=== PATIENT | female | born 1985 | race Caucasian/White ===

== ENCOUNTER → 2024-11-21 | Outpatient (CLI) | payer BC, OTHER ==
--- NOTE | 2024-11-30 08:58 | MM ---
Reason for Exam: Screening (asymptomatic). Last mammogram was performed 1 year(s) and 1 month(s) ago. Patient History: Menarche at age 7. First Full-Term at age 34. Late child-bearing (after 28). Patient has history of breast feeding. Last menstrual period: 11/16/2024 Risk Values: Whitley 5 year model risk: 0.9%. NCI Lifetime model risk: 14.7%. Prior Study Comparison: 10/07/2023 Bilateral Screening Mammogram, [facility]. Tissue Density: There are scattered areas of fibroglandular density. Findings: Analyzed By CAD. There is no suspicious group of microcalcifications or new suspicious mass in either breast. Overall Assessment: Negative, BI-RAD 1 Management: Screening Mammogram of both breasts in 1 year. . Patient should continue monthly self-breast exams. A clinical breast exam by your physician is recommended on an annual basis. This exam should not preclude additional follow-up of suspicious palpable abnormalities. Note on Whitley scores and lifetime risk: 1. A Whitley score greater than 3% is considered moderate risk. If this is the case, consider specialist referral to assess eligibility for a risk reducing agent. 2. If overall lifetime risk for the development of breast cancer is 20% or higher, the patient may qualify for future screening with alternating mammogram and breast MRI. [facility], , 11/30/2024 8:55 AM. Electronically signed and approved by: Kody Reynolds M.D. [facility]
== END | disposition home or self-care (01) ==
LOC: RADMAMWWP 09:50
PROVIDERS: ATTEND Internal Medicine Geriatric Medicine
DX: Z12.31 Encounter for screening mammogram for malignant neoplasm of breast (principal); R92.323 Mammographic fibroglandular density, bilateral breasts
CPT/HCPCS: 77063; 77067

== ENCOUNTER 2024-11-23 08:36 | Day surgery (SDC) | payer BC, OTHER ==
[2024-11-23] MEDS: IV FLUID CONTINUATION 1,000 ML IV ONE (09:05)
[2024-11-23] MEDS: LIDOCAINE 1% (10MG/ML) FOR IV START INTRADERMA STA (09:05)
[2024-11-23] MEDS: LACTATED RINGERS 1,000 ML IV SCH (09:05)
[2024-11-23 09:11] VITALS: TEMP 97.6
[2024-11-23] MEDS ORDERED: PROPOFOL 10 MG/ML 20 ML VIAL IV ONE (09:11)
[2024-11-23] MEDS ORDERED: LIDOCAINE 1% INJ 10MG/ML (20 ML MDV) ONE (09:11)
[2024-11-23 09:46] VITALS: BP 115/77; PULSE 60; RESP 17
--- NOTE | 2024-11-23 09:53 | P.PCN ---
Date of Procedure: 11/23/24 Procedure(s) Performed: BRIEF HISTORY: Patient is a 39-year-old pleasant white female scheduled for an elective colonoscopy as a part of screening for colon cancer and family history of colon cancer. Her grandpa was diagnosed with colon cancer at age 50. PROCEDURE PERFORMED: Colonoscopy. PREOPERATIVE DIAGNOSIS: Screening for colon cancer and family history of colon cancer. IV sedation per Anesthesia. PROCEDURE: After informed consent was obtained, the patient, was brought into the endoscopy unit. IV sedation was administered by Anesthesia under continuous monitoring. Digital rectal examination was normal. Initially the Olympus CF-160 flexible video colonoscope was then inserted in the rectum, gradually advanced into the cecum without any difficulty. Careful examination was performed as the scope was gradually being withdrawn. Ileocecal valve and the appendiceal orifice were visualized and appeared normal. Prep was excellent. Mucosa of the cecum, ascending colon, transverse colon, descending colon, sigmoid colon, and rectum appeared normal. Retroflexion was performed in the rectum and no lesions were seen. The patient tolerated the procedure well. IMPRESSION: Normal-appearing colon from rectum to cecum with no evidence of colitis or colorectal neoplasia. RECOMMENDATIONS: Findings of this examination were discussed with the patient as well as her family.. She was advised to have repeat screening colonoscopy in 10 years.
== END 2024-11-23 10:23 | disposition home or self-care (01) ==
LOC: ORWHC2ENDO 08:36
PROVIDERS: ATTEND Internal Medicine Gastroenterology
DX: Z12.11 Encounter for screening for malignant neoplasm of colon (principal); Z80.0 Family history of malignant neoplasm of digestive organs
CPT/HCPCS: 81025; 45378; J2003; J2704